=== PATIENT | female | born 1950 | race Two or more races ===

== ENCOUNTER 2017-11-08 20:26 | Inpatient (IN) | payer OTHER ==
[2017-11-08] MEDS ORDERED: morphine CARPU-JECT 2 MG/1 ML DISP.SYRIN IVPUSH ONE ×2 (21:15→23:05)
[2017-11-08] MEDS ORDERED: SODIUM CHLORIDE 500 ML IV STA (21:15)
--- NOTE | 2017-11-08 21:15 | PDOC ---
History of Present Illness - General Chief Complaint: Pain, Acute Stated Complaint: ABD PAIN Time Seen by Provider: 11/08/17 20:46 History Source: Patient Exam Limitations: No Limitations - History of Present Illness Travel History: No Initial Comments: 11/08/17 21:38 Best Contact: Pmhx: Pshx: Allergies: 66-year-old female presents to the ER complaining of diffuse abdominal discomfort with nausea and one bout of vomiting times one hour ago that was nonbilious and nonbloody and subjective fever but denies chills, headache, dizziness, lightheadedness, facial pains, chest pain, shortness of breath, flank pains, urinary symptoms: Frequency/urgency/hesitancy, hematuria. There are no alleviating or exacerbating factors. Past History - Past Medical History Allergies/Adverse Reactions: Allergies Allergy/AdvReac Type Severity Reaction Status Date / Time aspirin Allergy Verified 11/08/17 20:30 ibuprofen Allergy Verified 11/08/17 20:31 - Suicide/Smoking/Psychosocial Hx Smoking History: Never smoked Have you smoked in the past 12 months: No Information on smoking cessation initiated: No Hx Alcohol Use: No Drug/Substance Use Hx: No Review of Systems - Review of Systems Able to Perform ROS?: Yes Comments:: 11/08/17 21:39 CONSTITUTIONAL: Absent: fever, chills, diaphoresis, generalized weakness, malaise, loss of appetite HEENT: Absent: rhinorrhea, nasal congestion, throat pain, throat swelling, difficulty swallowing, mouth swelling, ear pain, eye pain, visual Changes CARDIOVASCULAR: Absent: chest pain, loss of consciousness, palpitations, irregular heart rate, peripheral edema RESPIRATORY: Absent: cough, shortness of breath, dyspnea with exertion, orthopnea, wheezing, stridor, hemoptysis GASTROINTESTINAL: +diffuse abd pain, N/V Absent: abdominal distension, diarrhea, constipation, melena, hematochezia GENITOURINARY: Absent: dysuria, frequency, urgency, hesitancy, hematuria, flank pain, genital pain MUSCULOSKELETAL: Absent: myalgia, arthralgia, joint swelling SKIN: Absent: rash, itching, pallor HEMATOLOGIC/IMMUNOLOGIC: Absent: easy bleeding, easy bruising, lymphadenopathy, frequent infections ENDOCRINE: Absent: unexplained weight gain, unexplained weight loss, heat intolerance, cold intolerance NEUROLOGIC: Absent: headache, focal weakness or paresthesias, dizziness, unsteady gait, seizure, mental status changes, bladder or bowel incontinence Is the patient limited Luxem[place]ish proficient: No *Physical Exam - Vital Signs Last Vital Signs Temp Pulse Resp BP Pulse Ox 88 20 134/94 100 11/08/17 20:29 11/08/17 20:29 11/08/17 20:29 11/08/17 20:29 - Physical Exam Comments: 11/08/17 21:39 GENERAL: Well developed, well nourished. Awake and alert. No acute distress. HEENT: Normocephalic, atraumatic. PERRLA, EOMI. No conjunctival pallor. Sclera are non- icteric. Moist mucous membranes. Oropharynx is clear. NECK: Supple. Full ROM. No JVD. Carotid pulses 2+ and symmetric, without bruits. No thyromegaly. No lymphadenopathy. CARDIOVASCULAR: Regular rate and rhythm. No murmurs, rubs, or gallops. Distal pulses are 2+ and symmetric. PULMONARY: No evidence of respiratory distress. Lungs clear to auscultation bilaterally. No wheezing, rales or rhonchi. ABDOMINAL: +diffuse abd pain Soft. Non-distended. No rebound or guarding. No organomegaly. Normoactive bowel sounds. MUSCULOSKELETAL Normal range of motion at all joints. No bony deformities or tenderness. No CVA tenderness. EXTREMITIES: No cyanosis. No clubbing. No edema. No calf tenderness. SKIN: Warm and dry. Normal capillary refill. No rashes. No jaundice. NEUROLOGICAL: Alert, awake, appropriate. Cranial nerves 2-12 intact. No deficits to light touch and temperature in face, upper extremities and lower extremities. No motor deficits in the in face, upper extremities and lower extremities. Normoreflexic in the upper and lower extremities. Normal speech. Toes are down- going bilaterally. Gait is normal without ataxia. PSYCHIATRIC: Cooperative. Good eye contact. Appropriate mood and affect. ED Treatment Course - LABORATORY CBC & Chemistry Diagram: 11/08/17 21:19 11/08/17 21:19 - RADIOLOGY Radiograph Interpretation: 11/08/17 21:41 CAT scan was abdomen and pelvis with by mouth and IV contrast: *DC/Admit/Observation/Transfer Diagnosis at time of Disposition: SBO (small bowel obstruction) - Discharge Dispostion Admit: Yes - Referrals Referrals: ON STAFF,NOT [Primary Care Provider] - - Patient Instructions - Post Discharge Activity
[2017-11-08] MEDS ORDERED: ONDANSETRON 4 MG/2 ML VIAL IVPUSH ONE (21:22)
[2017-11-08] MEDS ORDERED: ONDANSETRON 4 MG/2 ML VIAL ONE ×2 (21:23→21:29)
[2017-11-08 21:29] LABS: BASO % 0.5 % (0-2.0); EOS % 0.7 % (0-4.5); HEMATOCRIT 40.2 % (32.4-45.2); LYMPH % 18.8 % (8-40); MCH 32.5 pg (25.7-33.7); MCHC 34.7 g/dl (32.0-36.0); MEAN CELL VOLUME 93.5 fl (80-96); MEAN PLT VOLUME 7.8 fl (7.5-11.1); MONO % 4.8 % (3.8-10.2); NEUT % 75.2 % (42.8-82.8); PLATELET COUNT 159 K/MM3 (134-434); RDW 14.2 % (11.6-15.6); WHITE BLOOD COUNT 7.9 K/mm3 (4.0-10.0)
[2017-11-08] MEDS ORDERED: morphine SULFATE 4 MG/ML VIAL ONE ×2 (21:29→23:06)
[2017-11-08 21:58] LABS: ALBUMIN 3.9 g/dl (3.4-5.0); ANION GAP 8 (8-16); BILIRUBIN,TOTAL 0.7 mg/dL (0.2-1.0); BLOOD UREA NITROGEN 15 mg/dL (7-18); CALCIUM 9.1 mg/dL (8.5-10.1); CHLORIDE 106 mmol/L (98-107); CO2 25 mmol/L (21-32); CREATININE 1.3 mg/dL (0.55-1.02); GLUCOSE,RANDOM 121 mg/dL (74-106); POTASSIUM 3.3 mmol/L (3.5-5.1); SGOT/AST 36 U/L (15-37); SGPT/ALT 64 U/L (12-78); SODIUM 139 mmol/L (136-145); TOT PROT 6.9 g/dl (6.4-8.2)
[2017-11-08 21:59] LABS: ALK PHOS 102 U/L (45-117)
[2017-11-08 22:39] LABS: URINE APPEARANCE CLOUDY; URINE BILIRUBIN NEGATIVE (<2.0 mg/dL); URINE BLOOD NEGATIVE (NEGATIVE); URINE COLOR YELLOW; URINE GLUCOSE (UA) NEGATIVE (NEGATIVE); URINE KETONE 1+ (NEGATIVE); URINE LEUK ESTERASE NEGATIVE (NEGATIVE); URINE NITRITE NEGATIVE (NEGATIVE); URINE UROBILINOGEN NEGATIVE mg/dL (0.2-1.0)
[2017-11-08 22:45] LABS: URINE PROTEIN 2+ (NEGATIVE)
--- NOTE | 2017-11-09 01:03 | PDOC ---
*Physical Exam - Vital Signs Last Vital Signs Temp Pulse Resp BP Pulse Ox 88 20 134/94 100 11/08/17 20:29 11/08/17 20:29 11/08/17 20:29 11/08/17 20:29 Heart Score/ECG Review - ECG Impressions Comment:: 11/09/17 01:02 Twelve-lead EKG was performed and reviewed by me. There is normal sinus rhythm with a normal rate. Rate of 82 The axis is normal. Nonspecific T wave abnormalities ED Treatment Course - LABORATORY CBC & Chemistry Diagram: 11/11/17 06:00 11/11/17 06:00 - ADDITIONAL ORDERS Additional order review: Laboratory Results 11/08/17 11/08/17 21:48 21:19 Sodium 139 Potassium 3.3 L Chloride 106 Carbon Dioxide 25 Anion Gap 8 BUN 15 Creatinine 1.3 H Creat Clearance w eGFR 41.11 Random Glucose 121 H Calcium 9.1 Total Bilirubin 0.7 AST 36 ALT 64 Alkaline Phosphatase 102 Total Protein 6.9 Albumin 3.9 Urine Color Yellow Urine Appearance Cloudy Urine pH 9.0 H Ur Specific [place] 1.016 Urine Protein 2+ H Urine Glucose (UA) Negative Urine Ketones 1+ H Urine Blood Negative Urine Nitrite Negative Urine Bilirubin Negative Urine Urobilinogen Negative Ur Leukocyte Esterase Negative Urine WBC (Auto) 3 Urine RBC (Auto) 2 11/08/17 21:19 RBC 4.30 MCV 93.5 MCHC 34.7 RDW 14.2 MPV 7.8 Neutrophils % 75.2 Lymphocytes % 18.8 Monocytes % 4.8 Eosinophils % 0.7 Basophils % 0.5 - Medications Given in the ED: ED Medications Discontinued Medications Generic Name Dose Route Start Last Admin Trade Name Freq PRN Reason Stop Dose Admin Sodium Chloride 500 mls @ 500 mls/hr 11/08/17 21:15 11/08/17 21:38 Normal Saline - IV 11/08/17 22:14 500 mls/hr ASDIR STA Administration Morphine Sulfate 2 mg 11/08/17 21:15 11/08/17 21:38 Morphine Injection - IVPUSH 11/08/17 21:16 2 mg ONCE ONE Administration Morphine Sulfate 2 mg 11/08/17 23:05 11/08/17 23:18 Morphine Injection - IVPUSH 11/08/17 23:06 2 mg ONCE ONE Administration Ondansetron HCl 4 mg 11/08/17 21:22 11/08/17 21:38 Zofran Injection IVPUSH 11/08/17 21:23 4 mg ONCE ONE Administration Medical Decision Making - Medical Decision Making 11/09/17 01:02 The patient was seen and evaluated in conjunction with VINCENOZ Vincent under my direct supervision, ancillary studies were reviewed. I independently interviewed and evaluated the patient and I agree with the plan as outlined by VINCENZO Vincent. Pt with presenting with abd pain today CT +SBO will keep pt for further management, surgury consult *DC/Admit/Observation/Transfer Diagnosis at time of Disposition: SBO (small bowel obstruction) - Discharge Dispostion Condition at time of disposition: Stable - Referrals - Patient Instructions - Post Discharge Activity
[2017-11-09] MEDS ORDERED: morphine CARPU-JECT 2 MG/1 ML DISP.SYRIN IVPUSH ONE (01:09)
[2017-11-09] MEDS ORDERED: ONDANSETRON 4 MG/2 ML VIAL IVPUSH ONE (01:10)
[2017-11-09] MEDS ORDERED: morphine SULFATE 4 MG/ML VIAL ONE (01:29)
[2017-11-09] MEDS ORDERED: ONDANSETRON 4 MG/2 ML VIAL ONE (01:30)
--- NOTE | 2017-11-09 01:36 | PN ---
Teaching Attending Note Name of Resident: Rosalind León ATTENDING PHYSICIAN STATEMENT I saw and evaluated the patient. I reviewed the resident's note and discussed the case with the resident. I agree with the resident's findings and plan as documented. SUBJECTIVE: 66 F with Pmhx. of TAHBSO, Appendectomy who presents with abdominal pain, nausea , and NBNB vomiting. Started one hr. prior to arrival in ED. Denies fevers, chills. No chest pain, pressure, or shortness of breath. No urinary frequency or urgency. Denies any current abdominal pain, nausea, or vomiting. OBJECTIVE: Physical: VS: Vital Signs Period Temp Pulse Resp BP Sys/Brewer Pulse Ox Last 24 Hr 88 20 134/94 100 GEN: NAD, Resting in bed, AA0X3 HEENT: NCAT, PERRL, Throat without erythema or exudates, NGT in place CARD: RRR S1, S2 RESP: CTAB ABD: BSX4, NTD to palpation, Mild distension EXT: - C/C/E CBCD WBC 7.9 K/mm3 (4.0-10.0) 11/08/17 21: RBC 4.30 M/mm3 (3.60-5.2) 11/08/17 21: Hgb 14.0 GM/dL (10.7-15.3) 11/08/17 21: Hct 40.2 % (32.4-45.2) 11/08/17 21: MCV 93.5 fl (80-96) 11/08/17 21: MCHC 34.7 g/dl (32.0-36.0) 11/08/17: RDW 14.2 % (11.6-15.6) 11/08/17 21: Plt Count 159 K/MM3 (134-434) 11/08/17 21: MPV 7.8 fl (7.5-11.1) 11/08/17 21: CMP Sodium 139 mmol/L (136-145) 11/08/17 21:19 Potassium 3.3 mmol/L (3.5-5.1) L 11/08/17 21: Chloride 106 mmol/L (98-107) 11/08/17 21:19 Carbon Dioxide 25 mmol/L (21-32) 11/08/17 21:19 Anion Gap 8 (8-16) 11/08/17 21:19 BUN 15 mg/dL (7-18) 11/08/17 21:19 Creatinine 1.3 mg/dL (0.55-1.02) H 11/08/17 21:19 Creat Clearance w eGFR 41.11 (>60) 11/08/17 21:19 Random Glucose 121 mg/dL (74-106) H 11/08/17 21:19 Calcium 9.1 mg/dL (8.5-10.1) 11/08/17 21:19 Total Bilirubin 0.7 mg/dL (0.2-1.0) 11/08/17 21:19 AST 36 U/L (15-37) 11/08/17 21:19 ALT 64 U/L (12-78) 11/08/17 21:19 Alkaline Phosphatase 102 U/L (45-117) 11/08/17 21:19 Total Protein 6.9 g/dl (6.4-8.2) 11/08/17 21: Albumin 3.9 g/dl (3.4-5.0) 11/08/17 21:19 CT AP: 2.8 CM indet. L. Hepatic Hypodensity, Liver protocol MRI Minimally Dilated Small bowel, all four Quadrants, predominantly on right, with transition point in LLQ, C/W SBO. Diverticulosis. Small Ascited. Small cysitc foci bilateral Kidneys. GERD ASSESSMENT AND PLAN: 66 F with Pmhx. of TAHBSO, Appendectomy who presents with abdominal pain, nausea , and NBNB vomiting. 1.) SBO - NGT - NPO - IVF - SX. Consult 2.) Hepatic Hypodensity - Liver MRI- Can be done outpt. w GI Fu 2.) Dvt Ppx - SCDs
[2017-11-09] MEDS ORDERED: ONDANSETRON 4 MG/2 ML VIAL IVPUSH PRN (02:29)
--- NOTE | 2017-11-09 02:54 | HP ---
CHIEF COMPLAINT: abdominal pain PCP: HISTORY OF PRESENT ILLNESS: This is a 66 year old Citizen Of [place] speaking female, visiting from [place], who presented with abdominal pain, nausea and NBNB vomiting that started this afternoon. Pain is diffuse, sharp, throughout abdomen, non radiating. She denies fever, chills, diarrhea, melena. In the ER CT abdomen evident for small bowel obstruction. NG tube placed. PMH: ovarian Ca, s/p sx; 2016; HTN Recent Travel: PAST MEDICAL HISTORY: HTN; ovarian Ca PAST SURGICAL HISTORY: total oophrectomy/hysterectomy Social History: Smoking:no Alcohol:no Drugs: no Family History: Allergies aspirin Allergy (Verified 11/08/17 20:30) : rxn itchy eyes ibuprofen Allergy (Verified 11/08/17 20:31) HOME MEDICATIONS: REVIEW OF SYSTEMS CONSTITUTIONAL: Absent: fever, chills, diaphoresis, generalized weakness, malaise, loss of appetite, weight change HEENT: Absent: rhinorrhea, nasal congestion, throat pain, throat swelling, difficulty swallowing, mouth swelling, ear pain, eye pain, visual changes CARDIOVASCULAR: Absent: chest pain, syncope, palpitations, irregular heart rate, lightheadedness , peripheral edema RESPIRATORY: Absent: cough, shortness of breath, dyspnea with exertion, orthopnea, wheezing, stridor, hemoptysis GASTROINTESTINAL: Positive: abdominal pain,nausea, vomiting Absent: abdominal distension, , diarrhea, constipation, melena, hematochezia GENITOURINARY: Absent: dysuria, frequency, urgency, hesitancy, hematuria, flank pain, genital pain MUSCULOSKELETAL: Absent: myalgia, arthralgia, joint swelling, back pain, neck pain SKIN: Absent: rash, itching, pallor HEMATOLOGIC/IMMUNOLOGIC: Absent: easy bleeding, easy bruising, lymphadenopathy, frequent infections ENDOCRINE: Absent: unexplained weight gain, unexplained weight loss, heat intolerance, cold intolerance NEUROLOGIC: Absent: headache, focal weakness or paresthesias, dizziness, unsteady gait, seizure, mental status changes, bladder or bowel incontinence PSYCHIATRIC: Absent: anxiety, depression, suicidal or homicidal ideation, hallucinations. PHYSICAL EXAMINATION Vital Signs - 24 hr 11/08/17 20:29 Pulse Rate 88 Respiratory 20 Rate Blood Pressure 134/94 O2 Sat by Pulse 100 Oximetry (%) GENERAL: Awake, alert, and fully oriented, uncomfortable due to NGT placemeny LUNGS: Breath sounds equal, clear to auscultation bilaterally. No wheezes, and no crackles. No accessory muscle use. HEART: Regular rate and rhythm, normal S1 and S2 without murmur, rub or gallop. ABDOMEN: Soft, nontender, not distended, +bowel sounds, UPPER EXTREMITIES: 2+ pulses, warm, well-perfused. No cyanosis. No clubbing. No peripheral edema. LOWER EXTREMITIES: 2+ pulses, warm, well-perfused. No calf tenderness. No peripheral edema. NEUROLOGICAL: Cranial nerves II-XII intact. Laboratory Results - last 24 hr 11/08/17 11/08/17 11/08/17 21:19 21:19 21:48 WBC 7.9 RBC 4.30 Hgb 14.0 Hct 40.2 MCV 93.5 MCH 32.5 MCHC 34.7 RDW 14.2 Plt Count 159 MPV 7.8 Neutrophils % 75.2 Lymphocytes % 18.8 Monocytes % 4.8 Eosinophils % 0.7 Basophils % 0.5 Sodium 139 Potassium 3.3 L Chloride 106 Carbon Dioxide 25 Anion Gap 8 BUN 15 Creatinine 1.3 H Creat Clearance w eGFR 41.11 Random Glucose 121 H Calcium 9.1 Total Bilirubin 0.7 AST 36 ALT 64 Alkaline Phosphatase 102 Total Protein 6.9 Albumin 3.9 Urine Color Yellow Urine Appearance Cloudy Urine pH 9.0 H Ur Specific [place] 1.016 Urine Protein 2+ H Urine Glucose (UA) Negative Urine Ketones 1+ H Urine Blood Negative Urine Nitrite Negative Urine Bilirubin Negative Urine Urobilinogen Negative Ur Leukocyte Esterase Negative Urine WBC (Auto) 3 Urine RBC (Auto) 2 CT abdomen: minimally dilated small bowel all four quadrants. predominantly on the right, with transition point in the left lower quadrant, consistent with small bowel obstruction. no colitis, no free air. small ascites. 2.8 cm indeterminate left hepatic hypodensity ASSESSMENT/PLAN: This is a 66 year old Citizen Of [place] speaking female, visiting from [place], brought in by family due to n, v, abdominal pain. Found to have SBO on CT abdomen. #small bowel obstruction -NPO -NGT -serial abdominal exams -surgery and GI consult #hepatic hypodensity on CT -does have hx of ovarian CA; r/o andrei; -consider MRI; #yeimy: possible sec to dehydration -calculate FeNa -urine lytes, cr -IVF -trend Cr #hypokalemia sec to GI losses; vomiting -IV K; 4 bags -check mg; #hx of hypertension: controlled on norvasc 5mg qd at home IVF NS NPO DVT ppx: scds for now; may need sx GI ppx: protonix Disposition: med surg Visit type - Emergency Visit Emergency Visit: Yes ED Registration Date: 11/09/17 Care time: The patient presented to the Emergency Department on the above date and was hospitalized for further evaluation of their emergent condition. - New Patient This patient is new to me today: Yes Date on this admission: 11/09/17 - Critical Care Critical Care patient: No Hospitalist Screening - Colonoscopy Questionnaire Colonoscopy Questionnaire: Colonoscopy Questionnaire - Patient: 50 - 75 years old and never had a screening colonoscopy: Unknown History of colon or rectal polyps, or CA: Unknown History of IBD, Crohn's disease or UC: Unknown History of abdominal radiation therapy as a child: Unknown - Relative: 1 with colon or rectal CA, or polyps at age 60 or younger: Unknown Colon or rectal CA diagnosed at age 45 or younger: Unknown Multiple relatives with colon or rectal CA: Unknown - Outcome: Screening Result: Negative Screen
[2017-11-09] MEDS: KCL 10 MEQ IVPB 10 MEQ/100 ML INFUS.BAG IVPB SCH ×4 (03:03→08:50)
[2017-11-09] MEDS: SODIUM CHLORIDE 1,000 ML IV SCH ×2 (03:03→20:38)
[2017-11-09 04:51] VITALS: BMI 26.1
[2017-11-09 07:45] LABS: PROTHROMBIN TIME (PATIENT) 11.3 SEC (9.7-13.0)
[2017-11-09 07:48] LABS: ALBUMIN 3.6 g/dl (3.4-5.0); ALK PHOS 101 U/L (45-117); ANION GAP 9 (8-16); BASO % 0.1 % (0-2.0); BILIRUBIN,TOTAL 0.5 mg/dL (0.2-1.0); BLOOD UREA NITROGEN 14 mg/dL (7-18); CALCIUM 8.7 mg/dL (8.5-10.1); CHLORIDE 107 mmol/L (98-107); CO2 25 mmol/L (21-32); CREATININE 1.2 mg/dL (0.55-1.02); EOS % 0.2 % (0-4.5); GLUCOSE,RANDOM 111 mg/dL (74-106); HEMATOCRIT 41.3 % (32.4-45.2); HEMOGLOBIN 13.9 GM/dL (10.7-15.3); LYMPH % 10.7 % (8-40); MAGNESIUM 2.7 mg/dL (1.8-2.4); MCH 32.2 pg (25.7-33.7); MCHC 33.7 g/dl (32.0-36.0); MEAN CELL VOLUME 95.8 fl (80-96); MONO % 3.8 % (3.8-10.2); NEUT % 85.2 % (42.8-82.8); PHOSPHOROUS 4.2 mg/dL (2.5-4.9); PLATELET COUNT 143 K/MM3 (134-434); RBC 4.32 M/mm3 (3.60-5.2); RDW 14.5 % (11.6-15.6); SGOT/AST 27 U/L (15-37); SGPT/ALT 55 U/L (12-78); SODIUM 141 mmol/L (136-145); TOT PROT 6.5 g/dl (6.4-8.2)
--- NOTE | 2017-11-09 10:00 | CONSULT ---
- Consultation REQUESTING PROVIDER: José Miguel COLLATING MACHINE OPERATOR CONSULT REQUEST: We have been asked to surgically evaluate this patient for management of small bowel obstruction PCP:Javad Guaman HISTORY OF PRESENT ILLNESS: MONET who is a 66 y/o female who presented w / 1 day of nausea and vomiting and obstipation; pain was crampy and emesis occurred once; pain has since improved; she had a BM yesterday; she has a h/o RENATO-BSO and chemo in 2016 for ovarian carcinoma; last checkup was 09/05 and everything was "OK". NOC PMHx: ? htn PSHx: as above Allergies Allergy/AdvReac Type Severity Reaction Status Date / Time aspirin Allergy Verified 11/08/17 20:30 ibuprofen Allergy Verified 11/08/17 20:31 REVIEW OF SYSTEMS: CONSTITUTIONAL: Absent: fever, chills, diaphoresis, generalized weakness, malaise, loss of appetite, weight change CARDIOVASCULAR: Absent: chest pain, syncope, palpitations, irregular heart rate, lightheadedness , peripheral edema RESPIRATORY: Absent: cough, shortness of breath, dyspnea with exertion, wheezing, stridor, hemoptysis GENITOURINARY: Absent: dysuria, frequency, urgency, hesitancy, hematuria, flank pain, genital pain MUSCULOSKELETAL: Absent: myalgia, arthralgia, joint swelling, back pain, neck pain SKIN: Absent: rash, itching, pallor HEMATOLOGIC/IMMUNOLOGIC: Absent: easy bleeding, easy bruising, lymphadenopathy NEUROLOGIC: Absent: headache, focal weakness, paresthesias, dizziness, unsteady gait, seizure, mental status changes, bladder or bowel incontinence PSYCHIATRIC: Absent: anxiety, depression, suicidal or homicidal ideation, hallucinations. PHYSICAL EXAM: GENERAL: Awake, alert, and fully oriented, in no acute distress. HEAD: Normal with no signs of trauma. EYES: anicteric, NECK: Normal ROM, supple without lymphadenopathy, JVD, or masses. ABDOMEN: Soft, nontender, not distended, no guarding, no rebound, no masses. No organomegaly. No hernias; healed surgical scar. MUSCULOSKELETAL: Normal ROM at all joints. No bony deformities or tenderness. No CVA tenderness. UPPER EXTREMITIES: 2+ pulses, warm, well-perfused. No cyanosis. Cap refill <2 seconds. No peripheral edema. LOWER EXTREMITIES: 2+ pulses, warm, well-perfused. No calf tenderness. No peripheral edema. NEUROLOGICAL: Normal speech, gait not observed. PSYCH: Cooperative. Good eye contact. Appropriate mood and affect. SKIN: Warm, dry, normal turgor, no rashes or lesions noted. Vital Signs Temperature 98.2 F 11/09/17 04:12 Pulse Rate 74 11/09/17 04:12 Respiratory Rate 18 11/09/17 04:12 Blood Pressure 113/66 11/09/17 04:12 O2 Sat by Pulse Oximetry (%) 100 11/09/17 01:09 Lab Results WBC 7.0 K/mm3 (4.0-10.0) 11/09/17 06:20 RBC 4.32 M/mm3 (3.60-5.2) 11/09/17 06:20 Hgb 13.9 GM/dL (10.7-15.3) 11/09/17 06:20 Hct 41.3 % (32.4-45.2) 11/09/17 06:20 MCV 95.8 fl (80-96) 11/09/17 06:20 MCHC 33.7 g/dl (32.0-36.0) 11/09/17 06:20 RDW 14.5 % (11.6-15.6) 11/09/17 06:20 Plt Count 143 K/MM3 (134-434) 11/09/17 06:20 Sodium 141 mmol/L (136-145) 11/09/17 06:20 Potassium 4.0 mmol/L (3.5-5.1) 11/09/17 06:20 Chloride 107 mmol/L (98-107) 11/09/17 06:20 Carbon Dioxide 25 mmol/L (21-32) 11/09/17 06:20 Anion Gap 9 (8-16) 11/09/17 06:20 BUN 14 mg/dL (7-18) 11/09/17 06:20 Creatinine 1.2 mg/dL (0.55-1.02) H 11/09/17 06:20 Random Glucose 111 mg/dL (74-106) H 11/09/17 06:20 Calcium 8.7 mg/dL (8.5-10.1) 11/09/17 06:20 INR 1.00 (0.82-1.09) 11/09/17 06:20 CT a/p reviewed IMP:partial SBO vs. complete PLAN: NPO/IVF/NGT?serial exams and imaging studies; d/w the patient and her daughter in [place] and Arabic; surgery remians a possiblility if she does not improve w/the conservative tx. paln; they understand this. Vinay Cleary MD FACS Visit type - Case Type Case Type: ED Admission - Emergency Emergency Visit: Yes ED Registration Date: 11/09/17 Care time: The patient presented to the Emergency Department on the above date and was hospitalized for further evaluation of their emergent condition. - New patient This patient is new to me today: Yes Date on this admission: 11/09/17 - Critical Care Critical Care patient: No
--- NOTE | 2017-11-09 10:16 | EKG ---
Test Reason : Blood Pressure : / mmHG Vent. Rate : 087 BPM Atrial Rate : 087 BPM P-R Int : 164 ms QRS Dur : 086 ms QT Int : 388 ms P-R-T Axes : 070 -08 063 degrees QTc Int : 466 ms NORMAL SINUS RHYTHM NONSPECIFIC T WAVE ABNORMALITY ABNORMAL ECG NO PREVIOUS ECGS AVAILABLE Confirmed by MD IVONE, ANUEL ([id number]) on 11/09/2017 10:16:09 AM Referred By: Confirmed By:ANUEL WISEMAN MD
[2017-11-09] MEDS: PANTOPRAZOLE SODIUM 40 MG VIAL IVPUSH SCH (10:23)
--- NOTE | 2017-11-09 14:23 | PN ---
Physical Exam: SUBJECTIVE: Patient seen and examined No acute events overnight. Patient feels well this morning. No more episodes of emesis. OBJECTIVE: Vital Signs Period Temp Pulse Resp BP Sys/Brewer Pulse Ox Last 24 Hr 97.9 F-98.2 F 74-88 18-20 113-134/66-94 100-100 GENERAL: Awake, alert, and fully oriented, +NGT placement LUNGS: Breath sounds equal, clear to auscultation bilaterally. No wheezes, and no crackles. No accessory muscle use. HEART: Regular rate and rhythm, normal S1 and S2 without murmur, rub or gallop. ABDOMEN: Soft, nontender, not distended, +hyperactive bowel sounds UPPER EXTREMITIES: 2+ pulses, warm, well-perfused. No cyanosis. No clubbing. No peripheral edema. LOWER EXTREMITIES: 2+ pulses, warm, well-perfused. No calf tenderness. No peripheral edema. NEUROLOGICAL: Cranial nerves II-XII intact. Laboratory Results - last 24 hr 11/08/17 11/08/17 11/08/17 21:19 21:19 21:48 WBC 7.9 RBC 4.30 Hgb 14.0 Hct 40.2 MCV 93.5 MCH 32.5 MCHC 34.7 RDW 14.2 Plt Count 159 MPV 7.8 Neutrophils % 75.2 Lymphocytes % 18.8 Monocytes % 4.8 Eosinophils % 0.7 Basophils % 0.5 PT with INR INR Sodium 139 Potassium 3.3 L Chloride 106 Carbon Dioxide 25 Anion Gap 8 BUN 15 Creatinine 1.3 H Creat Clearance w eGFR 41.11 Random Glucose 121 H Calcium 9.1 Phosphorus Magnesium Total Bilirubin 0.7 AST 36 ALT 64 Alkaline Phosphatase 102 Total Protein 6.9 Albumin 3.9 Urine Color Yellow Urine Appearance Cloudy Urine pH 9.0 H Ur Specific [place] 1.016 Urine Protein 2+ H Urine Glucose (UA) Negative Urine Ketones 1+ H Urine Blood Negative Urine Nitrite Negative Urine Bilirubin Negative Urine Urobilinogen Negative Ur Leukocyte Esterase Negative Urine WBC (Auto) 3 Urine RBC (Auto) 2 Ur Random Sodium Ur Random Potassium Ur Random Chloride Urine Creatinine 11/09/17 11/09/17 11/09/17 06:00 06:00 06:20 WBC 7.0 RBC 4.32 Hgb 13.9 Hct 41.3 MCV 95.8 MCH 32.2 MCHC 33.7 RDW 14.5 Plt Count 143 MPV 8.0 Neutrophils % 85.2 H Lymphocytes % 10.7 D Monocytes % 3.8 Eosinophils % 0.2 Basophils % 0.1 PT with INR INR Sodium Potassium Chloride Carbon Dioxide Anion Gap BUN Creatinine Creat Clearance w eGFR Random Glucose Calcium Phosphorus Magnesium Total Bilirubin AST ALT Alkaline Phosphatase Total Protein Albumin Urine Color Urine Appearance Urine pH Ur Specific [place] Urine Protein Urine Glucose (UA) Urine Ketones Urine Blood Urine Nitrite Urine Bilirubin Urine Urobilinogen Ur Leukocyte Esterase Urine WBC (Auto) Urine RBC (Auto) Ur Random Sodium 104 Ur Random Potassium 62.0 Ur Random Chloride 58 Urine Creatinine 94.4 11/09/17 11/09/17 06:20 06:20 WBC RBC Hgb Hct MCV MCH MCHC RDW Plt Count MPV Neutrophils % Lymphocytes % Monocytes % Eosinophils % Basophils % PT with INR 11.30 INR 1.00 Sodium 141 Potassium 4.0 Chloride 107 Carbon Dioxide 25 Anion Gap 9 BUN 14 Creatinine 1.2 H Creat Clearance w eGFR 45.09 Random Glucose 111 H Calcium 8.7 Phosphorus 4.2 Magnesium 2.7 H Total Bilirubin 0.5 D AST 27 ALT 55 Alkaline Phosphatase 101 Total Protein 6.5 Albumin 3.6 Urine Color Urine Appearance Urine pH Ur Specific [place] Urine Protein Urine Glucose (UA) Urine Ketones Urine Blood Urine Nitrite Urine Bilirubin Urine Urobilinogen Ur Leukocyte Esterase Urine WBC (Auto) Urine RBC (Auto) Ur Random Sodium Ur Random Potassium Ur Random Chloride Urine Creatinine Active Medications Generic Name Dose Route Start Last Admin Trade Name Freq PRN Reason Stop Dose Admin Sodium Chloride 1,000 mls @ 125 mls/hr 11/09/17 02:30 11/09/17 03:03 Normal Saline - IV 125 mls/hr ASDIR LETICIA Administration Ondansetron HCl 4 mg 11/09/17 02:29 Zofran Injection IVPUSH Q6H PRN NAUSEA Pantoprazole Sodium 40 mg 11/09/17 10:00 11/09/17 10:23 Protonix Iv IVPUSH 40 mg DAILY LETICIA Administration Phenol/Menthol 1 spray 11/09/17 13:36 Chloraseptic - MM Q6HPO PRN SORE THROAT ASSESSMENT/PLAN: This is a 66 year old Brazilian speaking female, visiting from [place], brought in by family due to n, v, abdominal pain. Found to have SBO on CT abdomen. #small bowel obstruction -NPO -NGT -NS @ 125 cc/hr -zofran/protonix -serial abdominal exams -surgery and GI consult #hepatic hypodensity on CT -does have hx of ovarian CA; r/o mets; -consider MRI outpatient #yeimy: possible sec to dehydration -IVF NS @ 125 cc/hr -f/u electrolytes #hx of hypertension: controlled on norvasc 5mg qd at home, will hold in the setting of dehydration IVF NS NPO DVT ppx: scds for now GI ppx: protonix Disposition: med surg Visit type - Emergency Visit Emergency Visit: Yes ED Registration Date: 11/09/17 Care time: The patient presented to the Emergency Department on the above date and was hospitalized for further evaluation of their emergent condition. - New Patient This patient is new to me today: Yes Date on this admission: 11/09/17 - Critical Care Critical Care patient: No
[2017-11-09] MEDS ORDERED: PT OWN MED DRAWER 7, Y5N ONE ×3 (15:35→20:34)
--- NOTE | 2017-11-09 15:50 | PN ---
Teaching Attending Note Name of Resident: Darryl Griffiths ATTENDING PHYSICIAN STATEMENT I saw and evaluated the patient. I reviewed the resident's note and discussed the case with the resident. I agree with the resident's findings and plan as documented. SUBJECTIVE: no abd pain, no fever or . has no N/V , no BM or flatus PE: NAD NGT in CV; RRR Lungs: CTAB Ext: no edema Abd : soft, NT, hyperactive BS, ND . old surgical scars. ASSESSMENT AND PLAN: 66 y/o lady with h/o endometrial cancer s/p hysterectomy and appendectomy who presented with abd pain and distention , she was found to have SBO . 1- SBO: likely due to adhesions. - NGT - IVF - NPO - if conservative mgt is not enough then will require sx. - replete electrolytes 2- DAIJA ; prerenal in etiology. Fena 0.9% - IVF 3- liver hypodensity: MRI as out pt . 4- add lovenox for DVT px dispo : HLOC
[2017-11-09] MEDS: PHENOL 177 ML SPRAY BOTTLE MM PRN ×2 (16:55→20:40)
[2017-11-09] MEDS: ENOXAPARIN NA (PORCINE) 40 MG/0.4 ML DISP.SYRIN SQ SCH (18:22)
--- NOTE | 2017-11-09 20:38 | CON.GI ---
Consult Consult Specialty:: Gi - History of Present Illness History of Present Illness: Ask to see patient because of small bowel obstruction, ^6 y/o F with PMH of ovarian cancer s/p RENATO BSO 2016 developed abdominal pain, abdominal distention and constipation. CAtscan was reviewed and was noted to have dilated loops of small bowel whic was fluid filled. She had a bowel movement yesterday. NGT return for the past 12 hours was 250 cc. The abdominal has resolved. - Past Medical History ...: No - Alcohol/Substance Use Hx Alcohol Use: No - Smoking History Smoking history: Never smoked Have you smoked in the past 12 months: No Home Medications - Allergies Allergies/Adverse Reactions: Allergies Allergy/AdvReac Type Severity Reaction Status Date / Time aspirin Allergy Verified 11/08/17 20:30 ibuprofen Allergy Verified 11/08/17 20:31 Physical Exam-GI Vital Signs: Vital Signs Temperature 98.5 F 11/09/17 16:59 Pulse Rate 81 11/09/17 16:59 Respiratory Rate 20 11/09/17 16:59 Blood Pressure 130/73 11/09/17 16:59 O2 Sat by Pulse Oximetry (%) 100 11/09/17 01:09 Constitutional: Yes: Well Nourished Eyes: Yes: Conjunctiva Clear HENT: Yes: Atraumatic Neck: Yes: Trachea Midline Cardiovascular: Yes: Regular Rate and Rhythm Respiratory: Yes: CTA Bilaterally ...Auscultate: Yes: Normoactive Bowel Sounds ...Palpate: Yes: Soft. No: Firm/Rigid, Guarding, Hepatomegaly, Mass, Pulsatile Mass, Splenomegaly, Tenderness Labs: CBC, BMP 11/09/17 06:20 11/09/17 06:20 INR, PTT INR 1.00 (0.82-1.09) 11/09/17 06:20 Imaging - Results Chest X-ray: Image Reviewed X-ray: Image Reviewed Cat Scan: Image Reviewed Problem List - Problems (1) SBO (small bowel obstruction) Assessment/Plan: reslving, FUA -- no air fluid levels, non-specific gas pattern R> repeat FUA advance diet as per surgery please recall as necessary Code(s): K56.609 - UNSP INTESTNL OBST, UNSP TO PARTIAL VERSUS COMPLETE OBST
[2017-11-10] MEDS: PHENOL 177 ML SPRAY BOTTLE MM PRN (02:07)
[2017-11-10] MEDS: SODIUM CHLORIDE 1,000 ML IV SCH ×2 (05:10→12:43)
[2017-11-10 07:39] LABS: BASO % 0.4 % (0-2.0); EOS % 2.4 % (0-4.5); HEMATOCRIT 38.9 % (32.4-45.2); LYMPH % 23.8 % (8-40); MCH 32.1 pg (25.7-33.7); MCHC 33.5 g/dl (32.0-36.0); MEAN CELL VOLUME 95.8 fl (80-96); MEAN PLT VOLUME 7.9 fl (7.5-11.1); MONO % 5.7 % (3.8-10.2); NEUT % 67.7 % (42.8-82.8); PLATELET COUNT 142 K/MM3 (134-434); RBC 4.06 M/mm3 (3.60-5.2); RDW 14.7 % (11.6-15.6); WHITE BLOOD COUNT 5.2 K/mm3 (4.0-10.0)
[2017-11-10 08:07] LABS: CHLORIDE 113 mmol/L (98-107); POTASSIUM 3.7 mmol/L (3.5-5.1); SODIUM 143 mmol/L (136-145)
[2017-11-10 08:18] LABS: ALBUMIN 3.1 g/dl (3.4-5.0); ALK PHOS 86 U/L (45-117); ANION GAP 5 (8-16); BILIRUBIN,TOTAL 0.7 mg/dL (0.2-1.0); BLOOD UREA NITROGEN 9 mg/dL (7-18); CALCIUM 8.1 mg/dL (8.5-10.1); CO2 25 mmol/L (21-32); CREATININE 0.9 mg/dL (0.55-1.02); GLUCOSE,RANDOM 84 mg/dL (74-106); SGOT/AST 18 U/L (15-37); SGPT/ALT 42 U/L (12-78)
--- NOTE | 2017-11-10 09:09 | PN ---
Physical Exam: SUBJECTIVE: Patient seen and examined No acute events overnight. Patient passing gas. Feels well this morning. OBJECTIVE: Vital Signs Period Temp Pulse Resp BP Sys/Brewer Pulse Ox Last 24 Hr 97.8 F-99.9 F 79-94 18-20 125-140/71-84 97 GENERAL: Awake, alert, and fully oriented, +NGT placement LUNGS: Breath sounds equal, clear to auscultation bilaterally. No wheezes, and no crackles. No accessory muscle use. HEART: Regular rate and rhythm, normal S1 and S2 without murmur, rub or gallop. ABDOMEN: Soft, +mild right sided tenderness, not distended, normoactive bowel sounds UPPER EXTREMITIES: 2+ pulses, warm, well-perfused. No cyanosis. No clubbing. No peripheral edema. LOWER EXTREMITIES: 2+ pulses, warm, well-perfused. No calf tenderness. No peripheral edema. NEUROLOGICAL: Cranial nerves II-XII intact. Laboratory Results - last 24 hr 11/09/17 11/09/17 11/10/17 06:00 06:00 06:20 WBC 5.2 RBC 4.06 Hgb 13.0 Hct 38.9 MCV 95.8 MCH 32.1 MCHC 33.5 RDW 14.7 Plt Count 142 MPV 7.9 Neutrophils % 67.7 D Lymphocytes % 23.8 D Monocytes % 5.7 Eosinophils % 2.4 D Basophils % 0.4 D Sodium Potassium Chloride Carbon Dioxide Anion Gap BUN Creatinine Creat Clearance w eGFR Random Glucose Calcium Total Bilirubin AST ALT Alkaline Phosphatase Total Protein Albumin Ur Random Sodium 104 Ur Random Potassium 62.0 Ur Random Chloride 58 Urine Creatinine 94.4 11/10/17 06:20 WBC RBC Hgb Hct MCV MCH MCHC RDW Plt Count MPV Neutrophils % Lymphocytes % Monocytes % Eosinophils % Basophils % Sodium 143 Potassium 3.7 Chloride 113 H Carbon Dioxide 25 Anion Gap 5 L BUN 9 Creatinine 0.9 Creat Clearance w eGFR > 60 Random Glucose 84 Calcium 8.1 L Total Bilirubin 0.7 D AST 18 ALT 42 Alkaline Phosphatase 86 Total Protein 6.0 L Albumin 3.1 L Ur Random Sodium Ur Random Potassium Ur Random Chloride Urine Creatinine Active Medications Generic Name Dose Route Start Last Admin Trade Name Freq PRN Reason Stop Dose Admin Enoxaparin Sodium 40 mg 11/09/17 18:15 11/09/17 18:22 Lovenox - SQ 40 mg DAILY LETICIA Administration Sodium Chloride 1,000 mls @ 125 mls/hr 11/09/17 02:30 11/10/17 05:10 Normal Saline - IV 125 mls/hr ASDIR LETICIA Administration Ondansetron HCl 4 mg 11/09/17 02:29 Zofran Injection IVPUSH Q6H PRN NAUSEA Pantoprazole Sodium 40 mg 11/09/17 10:00 11/09/17 10:23 Protonix Iv IVPUSH 40 mg DAILY LETICIA Administration Phenol/Menthol 1 spray 11/09/17 13:36 11/10/17 02:07 Chloraseptic - MM 1 spray Q6HPO PRN Administration SORE THROAT ASSESSMENT/PLAN: This is a 66 year old Georgian speaking female, visiting from [place], brought in by family due to n, v, abdominal pain. Found to have SBO on CT abdomen. #Small bowel obstruction -NPO -NGT -NS @ 125 cc/hr -zofran/protonix -serial abdominal exams -surgery and GI consult -will advance diet as tolerated per surgery #hepatic hypodensity on CT -does have hx of ovarian CA; r/o mets; -consider MRI outpatient #yeimy: possible sec to dehydration -IVF NS @ 125 cc/hr -f/u electrolytes #hx of hypertension: controlled on norvasc 5mg qd at home, will hold in the setting of dehydration IVF NS NPO DVT ppx: lovenox GI ppx: protonix Disposition: med surg Visit type - Emergency Visit Emergency Visit: Yes ED Registration Date: 11/09/17 Care time: The patient presented to the Emergency Department on the above date and was hospitalized for further evaluation of their emergent condition. - New Patient This patient is new to me today: No - Critical Care Critical Care patient: No
[2017-11-10] MEDS: PANTOPRAZOLE SODIUM 40 MG VIAL IVPUSH SCH (09:58)
[2017-11-10] MEDS: ENOXAPARIN NA (PORCINE) 40 MG/0.4 ML DISP.SYRIN SQ SCH (10:00)
[2017-11-10] MEDS ORDERED: PT OWN MED DRAWER 7, Y5N ONE (10:17)
--- NOTE | 2017-11-10 13:03 | PN ---
Progress Note (short form) - Note Progress Note: Attending Surgeon No c/o; passing flatus; tolerating liquids VSS AF abdomen-soft; flat and non tender; non tympanitic AXR-air and contrast in colon. IMP: PSBO; resolving PLAN: Advance diet as tolerated; will f/u. Vinay Cleary MD FACS
--- NOTE | 2017-11-10 13:03 | PN ---
Teaching Attending Note Name of Resident: Darryl Griffiths ATTENDING PHYSICIAN STATEMENT I saw and evaluated the patient. I reviewed the resident's note and discussed the case with the resident. I agree with the resident's findings and plan as documented. SUBJECTIVE: OBJECTIVE: Vital Signs Period Temp Pulse Resp BP Sys/Brewer Pulse Ox Last 24 Hr 97.8 F-99.9 F 79-94 18-20 125-146/71-84 97 Laboratory Results - last 24 hr 11/10/17 11/10/17 06:20 06:20 WBC 5.2 RBC 4.06 Hgb 13.0 Hct 38.9 MCV 95.8 MCH 32.1 MCHC 33.5 RDW 14.7 Plt Count 142 MPV 7.9 Neutrophils % 67.7 D Lymphocytes % 23.8 D Monocytes % 5.7 Eosinophils % 2.4 D Basophils % 0.4 D Sodium 143 Potassium 3.7 Chloride 113 H Carbon Dioxide 25 Anion Gap 5 L BUN 9 Creatinine 0.9 Creat Clearance w eGFR > 60 Random Glucose 84 Calcium 8.1 L Total Bilirubin 0.7 D AST 18 ALT 42 Alkaline Phosphatase 86 Total Protein 6.0 L Albumin 3.1 L Current Medications Generic Name Dose Route Start Last Admin Trade Name Freq PRN Reason Stop Dose Admin Enoxaparin Sodium 40 mg 11/09/17 18:15 11/10/17 10:00 Lovenox - SQ 40 mg DAILY LETICIA Administration Sodium Chloride 1,000 mls @ 125 mls/hr 11/09/17 02:30 11/10/17 12:43 Normal Saline - IV 125 mls/hr ASDIR LETICIA Administration Ondansetron HCl 4 mg 11/09/17 02:29 Zofran Injection IVPUSH Q6H PRN NAUSEA Pantoprazole Sodium 40 mg 11/09/17 10:00 11/10/17 09:58 Protonix Iv IVPUSH 40 mg DAILY LETICIA Administration Phenol/Menthol 1 spray 11/09/17 13:36 11/10/17 02:07 Chloraseptic - MM 1 spray Q6HPO PRN Administration SORE THROAT ASSESSMENT AND PLAN: 66 y/o lady with h/o endometrial cancer s/p hysterectomy and appendectomy who presented with abd pain and distention , she was found to have SBO . 1- SBO: likely due to adhesions. - NGT - IVF - NPO - if conservative mgt is not enough then will require sx. - replete electrolytes 2- DAIJA ; prerenal in etiology. Fena 0.9% - IVF 3- liver hypodensity: MRI as out pt . 4- add lovenox for DVT px dispo : HLOC
[2017-11-11] MEDS: SODIUM CHLORIDE 1,000 ML IV SCH ×2 (06:32→15:36)
[2017-11-11 07:17] LABS: BASO % 0.4 % (0-2.0); EOS % 4.8 % (0-4.5); HEMOGLOBIN 12.6 GM/dL (10.7-15.3); LYMPH % 34.5 % (8-40); MCH 32.5 pg (25.7-33.7); MEAN CELL VOLUME 95.5 fl (80-96); MEAN PLT VOLUME 7.9 fl (7.5-11.1); MONO % 5.6 % (3.8-10.2); NEUT % 54.7 % (42.8-82.8); PLATELET COUNT 137 K/MM3 (134-434); RBC 3.87 M/mm3 (3.60-5.2); RDW 14.4 % (11.6-15.6); WHITE BLOOD COUNT 3.6 K/mm3 (4.0-10.0)
[2017-11-11 07:33] LABS: ALBUMIN 3.2 g/dl (3.4-5.0); ALK PHOS 79 U/L (45-117); ANION GAP 7 (8-16); BILIRUBIN,TOTAL 0.7 mg/dL (0.2-1.0); BLOOD UREA NITROGEN 8 mg/dL (7-18); CHLORIDE 114 mmol/L (98-107); CO2 25 mmol/L (21-32); CREATININE 0.9 mg/dL (0.55-1.02); GLUCOSE,RANDOM 78 mg/dL (74-106); POTASSIUM 3.6 mmol/L (3.5-5.1); SGOT/AST 16 U/L (15-37); SGPT/ALT 34 U/L (12-78); SODIUM 146 mmol/L (136-145); TOT PROT 5.9 g/dl (6.4-8.2)
--- NOTE | 2017-11-11 09:47 | PN ---
Progress Note (short form) - Note Progress Note: Attending Surgeon Minimal c/o pain; tolerating clear liquids; passing flatus; no BM VSS AF abdomen-soft;flat and minimally tender on the right WBC-wnl IMP: resolving obstruction PLAN: Advance diet as tolerated. Vinay Cleary MD FACS
[2017-11-11] MEDS: ENOXAPARIN NA (PORCINE) 40 MG/0.4 ML DISP.SYRIN SQ SCH (10:27)
[2017-11-11] MEDS: PANTOPRAZOLE SODIUM 40 MG VIAL IVPUSH SCH (10:27)
--- NOTE | 2017-11-11 16:25 | DS ---
Physical Exam: Selected Entries 11/11/17 11/11/17 09:00 17:00 Temperature 98.4 F Pulse Rate 70 Respiratory 20 Rate Blood Pressure 123/70 O2 Sat by Pulse 98 Oximetry (%) Oxygen Delivery Room Air Method Laboratory Tests 11/08/17 11/09/17 11/09/17 21:48 06:00 06:00 WBC Hgb Hct Plt Count PT with INR INR Sodium Potassium Chloride Carbon Dioxide Anion Gap Creatinine Creat Clearance w eGFR Urine Bilirubin Negative Urine Urobilinogen Negative Ur Leukocyte Esterase Negative Urine WBC (Auto) 3 Urine RBC (Auto) 2 Ur Random Sodium 104 Ur Random Potassium 62.0 Ur Random Chloride 58 Urine Creatinine 94.4 11/09/17 11/11/17 11/11/17 06:20 06:00 06:00 WBC 3.6 L D Hgb 12.6 Hct 37.0 Plt Count 137 PT with INR 11.30 INR 1.00 Sodium 146 H Potassium 3.6 Chloride 114 H Carbon Dioxide 25 Anion Gap 7 L Creatinine 0.9 Creat Clearance w eGFR > 60 Urine Bilirubin Urine Urobilinogen Ur Leukocyte Esterase Urine WBC (Auto) Urine RBC (Auto) Ur Random Sodium Ur Random Potassium Ur Random Chloride Urine Creatinine abd pelvis ct- early compete vs partial grade sbo, 2.4 x 2.1 cm hepatic mass -- nonspecific., bilateral renal cystic cysts HOSPITAL COURSE: Date of Admission:11/09/17 Date of Discharge: 11/11/17 66 year old Hebrew speaking female, visiting from [place], with pmh of RENATO with BLSO who presented with abdominal pain, nausea and NBNB vomiting admitted for small bowel obstruction. Patient had ng tube placed and made NPO. Diet was advanced as tolerated and patient symptomatically improved. She was dc with PCP and GI f/u. She will need her liver mass to be further evaluated with an MRI as outpatient. Minutes to complete discharge: 37 Discharge Summary Reason For Visit: SMALL BOWEL OBSTRUCTION Current Active Problems HTN (hypertension) (Chronic) Condition: Stable - Instructions Diet, Activity, Other Instructions: You were in the hospital due to a small bowel obstruction. A bowel obstruction occurs when your large or small intestine is completely or partly blocked. The blockage prevents food and waste from passing through normally. Please follow up with your primary care provider within 1 week. A referral to the resident clinic has been provided Please follow up with the GI doctor as well within 1 week. A spot was found on your liver. We recommend you get an MRI as an outpatient. Please discuss with your GI doctor. Continue your home medications as prescribed Contact your healthcare provider if: You have nausea and are vomiting. Your abdomen is enlarged. You cannot pass a bowel movement or gas. You lose weight without trying. You have blood in your bowel movement. You have questions or concerns about your condition or care. Seek care immediately or call 911 if: You have severe abdominal pain that does not get better. Your heart is beating faster than normal for you. You have a fever. Referrals: Earnest Swanson MD [Staff Physician] - 1 Week Royal Salguero MD [Staff Physician] - 1 Week Disposition: HOME - Home Medications Comprehensive Discharge Medication List: Ambulatory Orders Amlodipine Besylate [Norvasc -] 5 mg PO DAILY 11/10/17 This patient is new to me today: No Emergency Visit: Yes ED Registration Date: 11/09/17 Care time: The patient presented to the Emergency Department on the above date and was hospitalized for further evaluation of their emergent condition. Critical Care patient: No - Discharge Referral Referred to [facility] No
[2017-11-11 17:01] VITALS: BP 123/70; PULSE 70; TEMP 98.4
--- NOTE | 2017-11-11 19:25 | PN ---
Teaching Attending Note Name of Resident: Darryl Griffiths ATTENDING PHYSICIAN STATEMENT I saw and evaluated the patient. I reviewed the resident's note and discussed the case with the resident. I agree with the resident's findings and plan as documented. SUBJECTIVE: OBJECTIVE: Vital Signs Period Temp Pulse Resp BP Sys/Brewer Pulse Ox Last 24 Hr 98.0 F-98.9 F 70-81 18-20 123-133/70-91 98-99 Laboratory Results - last 24 hr 11/11/17 11/11/17 06:00 06:00 WBC 3.6 L D RBC 3.87 Hgb 12.6 Hct 37.0 MCV 95.5 MCH 32.5 MCHC 34.0 RDW 14.4 Plt Count 137 MPV 7.9 Neutrophils % 54.7 Lymphocytes % 34.5 D Monocytes % 5.6 Eosinophils % 4.8 H D Basophils % 0.4 Sodium 146 H Potassium 3.6 Chloride 114 H Carbon Dioxide 25 Anion Gap 7 L BUN 8 Creatinine 0.9 Creat Clearance w eGFR > 60 Random Glucose 78 Calcium 8.0 L Total Bilirubin 0.7 AST 16 ALT 34 Alkaline Phosphatase 79 Total Protein 5.9 L Albumin 3.2 L ASSESSMENT AND PLAN:
== END 2017-11-11 18:44 | disposition home or self-care (01) | DRG 247 ==
LOC: JER 20:26 → JERBED 11-09 01:28 → J8W 11-09 03:46
PROVIDERS: ADMIT Internal Medicine; ATTEND Internal Medicine
PROC: 0D9670Z Drainage of Stomach with Drainage Device, Via Natural or Artificial Opening (ICD-10-PCS; principal; 2017-11-09)
DX: K56.51 Intestinal adhesions [bands], with partial obstruction (principal); N17.9 Acute kidney failure, unspecified; E86.0 Dehydration; E87.6 Hypokalemia; I10 Essential (primary) hypertension; K76.89 Other specified diseases of liver; Z85.42 Personal history of malignant neoplasm of other parts of uterus
CPT/HCPCS: 36415; 71045-TC-FY; 74021-TC-FY; 74177-TC; 80053; 81003; 81015; 82436; 82570; 83735; 84100; 84133; 84300; 85025; 85610; 93005; 93010; 99284-25; J7030